=== PATIENT | female | born 1930 | race Caucasian/White ===

== ENCOUNTER 2016-05-13 08:29 | Day surgery (SDC) | payer MEDICARE ==
[~2016-05-13] VITALS: Ht 157.5 cm; Wt 72.0 kg
[~2016-05-13 08:29] MED LIST: 0.9% Sodium Chloride 1,000 ML IV SCH; ACET-171 PO; ASCO100089 PO; ASPI-973 PO; ATOR20TA65 PO; CHLO473M13 MM; CYAN500 PO; CYCL1DRO BOTH_EYES; DICL100G8 TOPICAL; DICL1ADH6 TD; DONE10TA42 PO; FLUT9.9S NS; FUR20 PO; HYDR-4003 PO; LORA10CA PO; MEMA10TA20 PO; METO25TA99 PO; NYST1POW23 MC; PANT20TA2 PO; POLY17PO2 PO; POTA10CA42 PO; QUET25TA73 PO; RANI300T4 PO; SERT25TA6 PO; Sodium Chloride LOK Flush 10 mL Syringe IV PRN; ZOLP10TA5 PO; fentaNYL-PF 50 mCg/mL 2 mL Inj IVPUSH PRN
[2016-05-13 08:52] VITALS: BP 108/62; PULSE 59; RESP 14; O2SAT 95
== END 2016-05-13 12:41 | disposition home or self-care (01) ==
LOC: END 08:29
PROVIDERS: ATTEND Internal Medicine Gastroenterology
DX: K62.89 Other specified diseases of anus and rectum (principal); K21.9 Gastro-esophageal reflux disease without esophagitis; Z53.8 Procedure and treatment not carried out for other reasons
CPT/HCPCS: 45378; J7030

== ENCOUNTER 2016-06-26 13:05 | Day surgery (SDC) | payer MEDICARE ==
[~2016-06-26] VITALS: Ht 160 cm; Wt 55.0 kg
[~2016-06-26 13:05] MED LIST changes: -0.9% Sodium Chloride 1,000 ML IV SCH; +Lactated Ringer's 1,000 ML IV ONE; -Sodium Chloride LOK Flush 10 mL Syringe IV PRN; -fentaNYL-PF 50 mCg/mL 2 mL Inj IVPUSH PRN
[2016-06-26] MEDS ORDERED: Propofol 10,000 mCg/mL 20 mL Inj ONE (13:06)
[2016-06-26 13:41] VITALS: BP 122/80; PULSE 62; RESP 16; O2SAT 93
[2016-06-26] MEDS ORDERED: Lactated Ringer's 1,000 ML IV SCH (14:09)
[2016-06-26] MEDS ORDERED: MetoCLOpramide 5 mg/mL 2 mL Inj IVPUSH PRN (14:10)
[2016-06-26] MEDS ORDERED: Ondansetron 2 mg/mL 2 mL Inj IVPUSH PRN (14:10)
[2016-06-26] MEDS ORDERED: MELA1TAB9 PO (14:23)
[2016-06-26 14:50] VITALS: BP 137/68; PULSE 71; RESP 14; O2SAT 95
--- NOTE | 2016-06-26 14:50 | PCM.HPANE ---
Patient Data Surgeon Admitting Provider: Attending Provider:Wendy Hutchins MD Primary Care Physician:Jose Borrero MD Other Provider:Raeann Blackmon Anesthesia Reason for Visit Rectal Pain, Gerd Ht/WT & BMI Height (Feet): 5 Height (Inches): 3 Weight (Kilograms): 55.0 Body Mass Index 21.00 Allergies Coded Allergies: codeine (Verified Allergy, Mild, 05/13/16) Sulfa (Sulfonamide Antibiotics) (Verified Allergy, Unknown, 06/25/16) droperidol (Verified Allergy, Unknown, 05/13/16) iodine (Verified Allergy, Unknown, 06/25/16) shellfish derived (Verified Allergy, Unknown, 05/13/16) Morpholine Analogues (Verified Adverse Reaction, Unknown, 06/25/16) meperidine (Verified Adverse Reaction, Unknown, 05/13/16) Uncoded Allergies: BILE (PORCINE) (Allergy, Unknown, 04/29/14) EGG PROTEIN PRODUCTS (Allergy, Unknown, 04/29/14) VACCINES (PORCINE) (Allergy, Unknown, 04/29/14) Past Anesthesia History Anesthesia History: Positive for:: Fam Anesthesia Reaction (SEVERE NAUSEA), Denies:: Abnormal Airway, Anesthesia Reactions, Difficult Intubation, Fam Malignant Hypertherm, Malignant Hyperthermia Diabetes History Hx Diabetes?: No MRSA MRSA: No Medications Date Beta Cortney Taken: Jun 25, 2016 Time Beta Cortney Taken: 0800 Reported Medications Melatonin 1 Mg Tablet2 Mg PO HS 06/26/16 Hydrocodone-Acetaminophen 5-325 mg 1 Each Tablet1 Tablet PO Q6 HR PRN For Pain Ref 0 06/19/15 Memantine HCl 10 Mg Peywzm13 Mg PO BID 06/19/15 Fluticasone Propionate (Flonase Allergy Relief)50 Mcg/Actuation [place].susp9.9 Ml NS DAILY 06/19/15 Loratadine (Claritin)10 Mg Lrdwurn43 Mg PO DAILY Ref 0 06/19/15 Nystatin 1 Each Powder.ea.1 Each MC PRN For Itching 06/19/15 Potassium Chloride 10 Meq Capsule.er10 Meq PO DAILY 30 Days Ref 0 TAKE WITH FOOD 06/19/15 Polyethylene Glycol 3350 17 Gm Powd.pack17 Gm PO DAILY 06/19/15 Furosemide 20 Mg Tab20 Mg PO DAILY 30 Days Ref 0 06/19/15 Cyclosporine (Restasis)1 Each Droperette1 Each BOTH_EYES BID 06/19/15 Aspirin 81 Mg Cvgjyf29 Mg PO DAILY Ref 0 06/19/15 Chlorhexidine Gluconate 473 Ml Lnyluwojw022 Ml MM TID 06/19/15 Acetaminophen 500 Mg Znvsfc857 Mg PO TID PRN For Fever 06/19/15 Diclofenac Gel (Voltaren Gel)100 Gm Tube1 Applic TOPICAL QID #1 TUBE 06/19/15 Sertraline HCl (Sertraline)25 Mg Iwfzvu90 Mg PO DAILY 30 Days Ref 0 06/19/15 Cyanocobalamin (Vitamin B12)500 Mcg Tablet1,000 Mcg PO DAILY 06/19/15 Quetiapine Fumarate 25 Mg Ecgjvs60 Mg PO HS Ref 0 06/19/15 Donepezil 10 Mg Zmavhd61 Mg PO HS Ref 0 06/19/15 Ranitidine 300 Mg Lskwhc854 Mg PO HS Ref 0 06/19/15 Zolpidem 10 Mg Fmkhhn45 Mg PO HS PRN For Insomnia Ref 0 06/19/15 Diclofenac Epolamine (Flector)1 Each Patch.td121 Each TD BID PRN prn #1 09/21/[address] 20 Mg Tablet.dr20 Mg PO DAILYWM 30 Days Ref 0 09/21/14 Ascorbic Acid (Vitamin C)1,000 Mg Tab.chew2,000 Mg PO BID 30 Days Ref 0 09/21/14 Metoprolol Succinate ER 25 Mg Tab.er.24h25 Mg PO BID 30 Days Ref 0 09/21/14 Atorvastatin Calcium 20 Mg Fxecdn81 Mg PO HS #30 TABLET Ref 0 09/21/14 History History of ENT Problems?: Yes HEENT History: Positive for:: Cataracts Hearing Problem Denies:: Abnormal Airway Difficult Intubation Dysphagia Sinus Problem Denture Type: Full- Upper Full- Lower Hx of Heart Problems?: Yes Cardiovascular History: Positive for:: Edema (feet/ankles) Hypertension (hyperlipidemia) Denies:: AICD Cardiac Surgery Chest Pain Congestive Heart Failure Heart Murmur Irregular Heartbeat Pacemaker Thrombophlebitis Valvular Heart Disease Hx of Respiratory Problem?: Yes Respiratory History: Denies:: Asthma COPD Chest Surgery Dyspnea Emphysema Hemoptysis Pneumonia Tuberculosis Other Resp Pertinent History: hx of lung surgery Hx Neurologic Problems?: Yes Neurological History: Positive for:: Alzheimer's Disease (prealzheimer's dis) Dementia (forgetful, memory loss) Dizziness Denies:: CVA Headaches Parkinson's Disease Seizures Hx of GI Problems?: Yes Gastrointestinal History: Positive for:: Diverticulitis (diverticula from recent colonoscopy) Gastroesphageal Reflux Hepatitis Liver Disease (hep c) Denies:: Gastrointestinal Bleeding Heartburn Hiatal Hernia Rectal Bleeding Other GI Pertinent History: rectal pain Hx of Problems?: Yes Genitourinary History: Positive for:: Urinary Tract Infection Denies:: HX of Hemodialysis Kidney Stones HX of Peritoneal Dialysis: No Female Hx: Positive for:: Pelvic Inflammatory (yrs ago) Denies:: Currently Endometriosis Problems with Breasts? Musculoskeletal History: Denies:: Joint Replacement Hx of Psycho/Social Problems?: Yes Psycho Social History: Positive for:: Anxiety (at times) Denies:: Bipolar Disorder Hx Depression Suicide Attempt Hx Surgeries?: Yes (LUNG SURGERY-histoplasmosis, 5 knee surgeries,appy,) Hx Any Other Health Problems?: No Other History: Positive for:: Hospitalization Denies:: Cancer Endocrine Disease Thyroid Disease History Blood Transfusions: Denies:: Blood Transfuse Reaction Blood Transfusions Hx Diabetes: No Hx Alcohol Use: NoHx Substance Use: No Smoking Status: Former Smoker Never Smoker Have You Smoked inLast 12 mo: No Stop/Bang Treated for Sleep Apnea?: Yes Do You Have a CPAP Machine?: Yes (off and on) S-Snoring: Do You Snore Loudly: No ARNULFO Risk Assessment: High Risk, =/>3 Yes Risk Assessment Category Category 1A: Patient has history of documented sleep apnea, and HAS NOT received any narcotic, sedative or anesthesia administration during this stay. Category 1B: Patient has history of documented sleep apnea, and HAS received any narcotic , sedative or anesthesia administration during this stay Category 2: Patient has SUSPECTED Obstructive Sleep Apnea, and HAS received any narcotic , sedative or anesthesia administration during this stay. Category 3: Patient has SUSPECTED Obstructive Sleep Apnea and HAS NOT received narcotic, sedative or anesthesia administration during this stay. Category 4: Outpatient in Procedural Areas with known sleep apnea or who screen positive for High Risk via the STOP/BANG questionnaire. Exam Exam Vital Signs Vital Signs Date Time Temp Pulse Resp B/P Pulse Ox O2 Delivery O2 Flow Rate FiO2 06/26/16 13:41 36.1 62 16 122/80 93 Room Air General Appearance: Alert, Oriented X3 HEENT/AIRWAY: MP 1, Other (edentulous) Lungs: Clear to Auscultation Heart: Exam Unremarkable Meds/Labs/Diagnostics Admission Meds Current Medications Lactated Ringer's (Lr) 1,000 ml @ 10 mls/hr Q24H ONCE IV Last administered on 06/26/16t 14:20; Start 06/26/16 at 06:00; Stop 06/27/16 at 05:59 Plan Impression Patient chart reviewed, patient interviewed and anesthestic plan with risks, benefits, and alternatives discussed, and informed consent obtained. NPO Status: >8hr ASA Physical Status: ASA3 Severe Disease Anesthetic Plan: GA Bene/Risks/Altern/Consents: Yes HP Complete Prior to Induction: Yes Jonatan Foster MD Jun 26, 2016 14:50
--- NOTE | 2016-06-26 14:52 | PCM.ANEP1 ---
Post Anesthesia Phase 1 PACU Phase 1 Assessment Vital Signs 90%, 66, 16, 146/70, 36.5 Vital Signs Date Time Temp Pulse Resp B/P Pulse Ox O2 Delivery O2 Flow Rate FiO2 06/26/16 13:41 36.1 62 16 122/80 93 Room Air Anesthetic Administered: GA Level of Alertness: Awake, talking STEINER's with Equal Strength: Yes Pain: No Nausea or Vomiting: No Oxygen Delivery: Room Air Lungs: Clear to Auscultation Dermatome Level: Full Sensation Summary uneventful sedation Jonatan Foster MD Jun 26, 2016 14:52
--- NOTE | 2016-06-26 14:52 | PCM.ANEP2 ---
Post Anesthesia Evaluation ASA/CMS Post Anesthesia VS in Patient's Normal Range?: Yes Resp Stable; Airway Patent?: Yes CV Function & Hydration Stable: Yes Mental Status Recovered?: Yes Pain control Satisfactory?: Yes N/V Control Satisfactory?: Yes Jonatan Foster MD Jun 26, 2016 14:52
[2016-06-26 15:00] VITALS: BP 139/69; PULSE 56; RESP 14; O2SAT 98
[2016-06-26 15:10] VITALS: BP 145/88; PULSE 59; RESP 16; O2SAT 99
--- NOTE | 2016-06-26 15:15 | ENDO ---
[address] [address] ENDOSCOPY PROCEDURE PATIENT: REGULO MUNOZ : 1930 MR#: [id number] ADMIT: 06/26/2016 JOB ID: [id number] DATE: 06/26/2016 PROCEDURE: Esophagogastroduodenoscopy. INDICATION: Gastroesophageal reflux. Please see anesthesia report for details regarding ASA classification, Mallampati score and medications. INSTRUMENT USED: GIF H 180 J. PROCEDURE DETAILS: After informed consent was obtained, the patient was brought into the GI suite, where she was placed on oxygen via nasal cannula and monitored with continuous pulse oximeter, telemetry and blood pressure monitoring. A bite block was placed. Medications were then administered for sedation. The standard EGD scope was inserted through the bite block and advanced under direct visualization to the second portion of the duodenum without difficulty. FINDINGS: 1. Normal appearing duodenal bulb, first and second portion. 2. Normal-appearing pylorus. 3. In the antrum and proximal gastric body, there were flecks of old heme noted. No obvious ulcers or erosions noted. 4. Retroflexed views in the gastric body revealed a normal-appearing cardia and fundus. 5. Multiple random biopsies were obtained in the antrum and body of the stomach. 6. Normal appearing GE junction with a regular Z-line at 36 cm. 7. Normal appearing esophagus. IMPRESSION: Old flecks of heme noted in the antrum and body of the stomach. Otherwise normal examination to the second portion of duodenum. RECOMMENDATIONS: 1. Await biopsy results. 2. Proceed to colonoscopy. COMPLICATIONS: None. ESTIMATED BLOOD LOSS: Less than 5 mL. PROCEDURE PERFORMED: Colonoscopy. INDICATION: Rectal pain. Please see above for ASA classification, Mallampati score and medications. INSTRUMENT USED: PCF H 180 AL. PREPARATION QUALITY: Was fair. PROCEDURE DETAILS: After completion of the EGD examination, a digital rectal examination was performed, which revealed a moderate-sized rectal prolapse. We were able to advance the prolapsed mucosa back into the rectum. The colonoscope was then inserted into the rectum and advanced under direct visualization to the cecum, which was identified by the presence of the ileocecal valve and appendiceal orifice. Once the cecum was reached, colonoscope was withdrawn back into the rectum as the mucosa and lumen were examined. In the rectum, retroflexion was performed. Following retroflexion, remaining air in the rectum was suctioned and procedure was completed. FINDINGS: Scattered diverticula were seen throughout the left side of the colon. Otherwise normal examination from rectum to cecum. IMPRESSION: 1. Intermittent rectal prolapse. 2. Left-sided diverticulosis. RECOMMENDATIONS: Surgical consultation for consultation for rectal prolapse. COMPLICATIONS: None. ESTIMATED BLOOD LOSS: 0.
[2016-06-26 15:20] VITALS: BP 148/85; PULSE 62; RESP 16; O2SAT 97
--- NOTE | 2016-07-01 15:39 | PATH ---
SURGICAL PATHOLOGY Attending Physician:Judy Christianson CASE STATUS: Signed Out PATIENT NAME: REGULO MUNOZ PID: [id number] : 1930 DATE COLLECTED:06/26/2016 00:00 SPECIMEN: Gastric, Biopsy CLINICAL HISTORY: GERD, RECTAL PAIN 1). GASTRIC BIOPSY FINAL DIAGNOSIS: 1. Stomach, Biopsy: Acute erosive gastritis. Negative for Helicobacter by immunohistochemistry. Negative for intestinal metaplasia. Negative for dysplasia and malignancy. ICD10 R10.9 GROSS DESCRIPTION: The specimen is received in one formalin filled container labeled with the patient's name, sublabeled "gastric" and consists of 2 portions of tissue which aggregate to 0.3 x 0.3 x 0.2 CM. The specimen is entirely submitted in one cassette. 06/27/2016 [facility] MICRO DESCRIPTION: An immunohistochemical stain was performed to evaluate for Helicobacter organisms and is negative. A control stain showed appropriate reactivity. * This test was developed and its performance characteristics determined by [facility]. It has not been cleared or approved by the U.S. Food and Drug Administration. The FDA has determined that such clearance or approval is not necessary. This test is used for clinical purposes. It should not be regarded as investigational or for research. ICD-9 CODES: CPT CODES: 1: 56643, 79424 Electronically Signed Out Swathi Desai MD [facility] [address], [place] [address] Technical component performed at [facility], [address], [place], [address]
== END 2016-06-26 23:59 | disposition home or self-care (01) ==
LOC: END 13:05
PROVIDERS: ATTEND Internal Medicine Gastroenterology
PROC: 0DJD8ZZ Inspection of Lower Intestinal Tract, Via Natural or Artificial Opening Endoscopic (ICD-10-PCS; principal; 2016-06-26 13:45)
PROC: 0DB68ZX Excision of Stomach, Via Natural or Artificial Opening Endoscopic, Diagnostic (ICD-10-PCS; 2016-06-26 13:45)
DX: K62.3 Rectal prolapse (principal); K29.00 Acute gastritis without bleeding; K21.9 Gastro-esophageal reflux disease without esophagitis; G47.30 Sleep apnea, unspecified; Z79.82 Long term (current) use of aspirin; I10 Essential (primary) hypertension; G30.8 Other Alzheimer's disease; F02.80 Dementia in other diseases classified elsewhere, unspecified severity, without behavioral disturbance, psychotic disturbance, mood disturbance, and anxiety; K57.30 Diverticulosis of large intestine without perforation or abscess without bleeding; K62.89 Other specified diseases of anus and rectum
CPT/HCPCS: 43239; 45378; J7120